=== PATIENT | female | born 1940 | race Two or more races ===

== ENCOUNTER 2018-03-02 11:12 | Outpatient (CLI) | payer OTHER ==
[~2018-03-02 11:12] MED LIST: PLAVIX75 MG; SYNTHROID75 MCG
== END 2018-03-02 11:24 | disposition home or self-care (01) ==
LOC: RAD 11:12
DX: M17.11 Unilateral primary osteoarthritis, right knee (principal); M21.861 Other specified acquired deformities of right lower leg

== ENCOUNTER 2018-04-23 12:37 | Outpatient (CLI) | payer OTHER | END 2018-04-23 15:48 | disposition home or self-care (01) | LOC: SONOGRAMA 12:37 | DX: N95.0 Postmenopausal bleeding (principal) ==

== ENCOUNTER → 2023-03-08 | Outpatient (CLI) | payer OTHER | END | disposition home or self-care (01) | LOC: SONOGRAMA 11:49 | PROVIDERS: ATTEND Family Medicine | DX: N93.9 Abnormal uterine and vaginal bleeding, unspecified (principal) ==

== ENCOUNTER 2025-01-08 10:22 | Emergency (ER) | payer OTHER ==
[~2025-01-08] VITALS: Ht 165.1 cm; Wt 63.5 kg
[2025-01-08 10:29] VITALS: BP 160/80; O2SAT 96
[2025-01-08] MEDS ORDERED: ACETAMINOPHEN 500 MG GEL..CAP PO ONE ×2 (10:39→10:45)
[2025-01-08 11:00] LABS: BASO % 0.7 % (0.1-1.2); EOS # 0.11 (0.04-0.54); EOS % 1.6 % (0.7-7.0); LYMPH # 1.54 (1.18-3.74); LYMPH % 22.2 % (19.3-53.1); MEAN PLATELET VOLUME 9.10 fl (9.4-12.4); MONO # 0.92 (0.24-0.82); NEUT # 4.29 (1.56-6.13); NEUT % 61.9 % (34.0-71.1); RED CELL DISTRIBUTION WIDTH 12.3 % (11.6-14.4)
[2025-01-08 11:02] LABS: MONO % 13.3 % (4.7-12.5)
[2025-01-08 11:17] LABS: ALT/SGPT 23.0 U/L (12-78); AST/SGOT 12.0 U/L (15-37); BILIRUBIN TOTAL 0.48 mg/dL (0.3-1.2); BUN CREA RATIO 20.0 (7.0-25.0); CREATININE SERUM 0.94 mg/dL (0.55-1.02); GFR 56.59; GLOBULINA 4.5 G/DL (2.4-3.5); GLUCOSE FASTING 147.0 mg/dL (65-100); OSMOLALITY SERUM 292.0 MOSM/KG (275-295)
[2025-01-08 12:53] LABS: URINE APPEARANCE Clear; URINE BILIRRUBIN Negative (NEGATIVE); URINE BLOOD Negative; URINE COLOR Yellow; URINE GLUCOSE Negative (NEGATIVE); URINE KETONE Negative (NEGATIVE); URINE LEUKOCYTE Negative; URINE NITRATE Negative; URINE PROTEIN Negative (NEGATIVE); URINE UROBILINOGEN 0.2 E.U./dl
[2025-01-08 12:56] LABS: URINE BACTERIA 5.9 uL (0.0-1933); URINE EPITHELIAL CELLS 12.5 uL (0.0-38.8); URINE RBC 2.6 uL (0.0-20.8); URINE WBC 19.0 uL (0.0-23.2)
[2025-01-08 13:28] LABS: URINE CAST 1.17 uL (0.0-1.40)
[2025-01-08] MEDS ORDERED: MORPHINE SULFATE 2 MG/ML SYRINGE IV ONE (15:30)
[2025-01-08] MEDS ORDERED: DEXAMETHASONE SODIUM PHOSPHATE 4 MG/ML VIAL ONE (16:46)
[2025-01-08] MEDS ORDERED: TRAMADOL HCL50 MG PO (16:59)
[2025-01-08] MEDS ORDERED: DEXAMETHASONE SODIUM PHOSPHATE 4 MG/ML VIAL IV ONE (17:00)
== END 2025-01-08 20:50 | disposition home or self-care (01) ==
LOC: ER 10:22
PROVIDERS: Preventive Medicine Public Health & General Preventive Medicine
DX: M54.50 Low back pain, unspecified (principal); E03.8 Other specified hypothyroidism; I10 Essential (primary) hypertension; Z86.73 Personal history of transient ischemic attack (TIA), and cerebral infarction without residual deficits; Z91.013 Allergy to seafood
CPT/HCPCS: 36415; 72110; 96365; 99283; J1100